=== PATIENT | female | born 1940 | race Asian ===

== ENCOUNTER 2021-01-12 06:16 | Inpatient (IN) | payer MEDICARE ==
[~2021-01-12] VITALS: Ht 162.6 cm; Wt 72.0 kg
[~2021-01-12 06:16] MED LIST: ASPI-611 PO; DILT30TA12 PO; LEVO125T PO; LOVA20TA2 PO; OMEP20CA15 PO; WARF5TAB2 PO
[2021-01-12 07:03] LABS: BASOPHILS # (AUTO) 0.1 X10'3 (0-0.2); BASOPHILS % (AUTO) 1.2 % (0-1); EOSINOPHILS # (AUTO) 0.2 X10'3 (0-0.9); HEMATOCRIT 41.3 % (35.0-45.0); HEMOGLOBIN 13.5 g/dl (12.0-16.0); LYMPHOCYTES # (AUTO) 1.4 X10'3 (1.1-4.8); LYMPHOCYTES % (AUTO) 26.2 % (21-51); MEAN CORPUSCULAR HEMOGLOBIN 29.7 PG (27.0-31.0); MEAN CORPUSCULAR HGB CONC 32.7 g/dL (33.0-36.5); MEAN CORPUSCULAR VOLUME 90.7 FL (78-98); MEAN PLATELET VOLUME 6.7 FL (7.4-10.4); MONOCYTES # (AUTO) 0.3 X10'3 (0-0.9); MONOCYTES % (AUTO) 5.8 % (2-12); NEUTROPHILS # (AUTO) 3.4 X10'3 (1.8-7.7); NEUTROPHILS % (AUTO) 63.8 % (42-75); PLATELET COUNT 329 X10'3 (140-440); RED BLOOD COUNT 4.56 X10'6 (4.20-5.60); RED CELL DISTRIBUTION WIDTH 15.8 % (11.5-14.5); WHITE BLOOD COUNT 5.3 X10'3 (4.5-11.0)
[2021-01-12 07:20] LABS: ALANINE AMINOTRANSFERASE 21 U/L (12-78); ALBUMIN 3.2 G/DL (3.4-5.0); ALBUMIN/GLOBULIN RATIO 0.9 (1.1-1.5); ALKALINE PHOSPHATASE 65 IU/L (46-116); ANION GAP 8 (8-16); ASPARTATE AMINO TRANSFERASE 15 U/L (10-37); BILIRUBIN,TOTAL 0.6 MG/DL (0.1-1.0); BLOOD UREA NITROGEN 12 MG/DL (7-18); BUN/CREATININE RATIO 15.8 (6.6-38.0); CALCIUM 8.3 MG/DL (8.5-10.1); CHLORIDE 109 MMOL/L (99-107); CREATININE 0.76 MG/DL (0.40-0.90); GLUCOSE 98 MG/DL (70-104); POTASSIUM 3.7 MMOL/L (3.5-5.1); SODIUM 142 MMOL/L (135-145); TOTAL CARBON DIOXIDE 24.9 MMOL/L (24-32); TOTAL PROTEIN 6.9 G/DL (6.4-8.2); eGFR 73 ML/MIN
[2021-01-12] MEDS ORDERED: normal saline 1000ML IV soln IVB ONE (07:40)
[2021-01-12] MEDS ORDERED: diltiazem 5mg/ml 5ml inj. IV ONE (07:40)
[2021-01-12] MEDS ORDERED: mag hydrox/Alum hydrox/simeth 30ml oral suspension PO PRN (07:55)
[2021-01-12] MEDS ORDERED: magnesium hydroxide 30ml (MOM) UD suspension PO PRN (07:55)
[2021-01-12] MEDS ORDERED: PERFLUTREN PROTEIN-A MICROSPHR (Optison) 0.22 MG/ML 3ML VIAL IV ONE (07:55)
[2021-01-12] MEDS ORDERED: magnesium 4gm in 100ml NS 100 ML IV PRN (07:55)
[2021-01-12] MEDS ORDERED: HYDROcodone/acetaminophen 5mg/325mg tablet PO PRN (07:55)
[2021-01-12] MEDS ORDERED: potassium Cl 20 mEq SR tablet PO PRN ×2 (07:55)
[2021-01-12] MEDS ORDERED: acetaminophen 325mg tablet PO PRN (07:55)
[2021-01-12] MEDS ORDERED: potassium Cl 40MEQ/1/2NS 520ml 520 ML IV PRN ×2 (07:55)
[2021-01-12] MEDS ORDERED: ondansetron/PF 4mg/2ml inj IV PRN (07:55)
[2021-01-12] MEDS ORDERED: magnesium 2GM in 50ml NS 50 ML IV PRN (07:55)
[2021-01-12] MEDS ORDERED: HYDROcodone/acetaminophen 10/325mg tab PO PRN (07:55)
[2021-01-12] MEDS ORDERED: heparin, porcine 5000 units/ml vial SQ SCH (08:00)
[2021-01-12] MEDS: K and/or MAG REPLACEMENT MC SCH ×2 (08:00→20:00)
[2021-01-12] MEDS ORDERED: metoprolol tartrate 25mg tablet PO ONE (09:20)
[2021-01-12] MEDS ORDERED: nitroGLYCERIN 0.4mg SUBLingual tab SL PRN (09:25)
[2021-01-12] MEDS ORDERED: regadenoson 0.4mg/5ml syringe IV PRN (09:25)
[2021-01-12] MEDS ORDERED: metoprolol tartrate 1mg/ml inj IV PRN (09:25)
[2021-01-12] MEDS ORDERED: aminophylline 250mg/10ml inj. IV PRN (09:25)
[2021-01-12 11:00] VITALS: BP 121/67
[2021-01-12] MEDS ORDERED: LEVO50TA8 PO (11:06)
--- NOTE | 2021-01-12 12:51 | NUR ---
fax dietary for late tray
[2021-01-12 15:00] VITALS: BP 93/57
--- NOTE | 2021-01-12 15:47 | NUR ---
receive call from jorge in nuc med that pt refused stress test and md longoria aware and gave ok to cancel
[2021-01-12] MEDS ORDERED: digoxin 250mcg/ml 2ml ampule IV STA (16:11)
--- NOTE | 2021-01-12 16:13 | NUR ---
return call from md longoria regarding hr 120-130 and sbp 97-87 afte rmetoprolol. to write ordes for dig.
[2021-01-12] MEDS: metoprolol tartrate 25mg tablet PO SCH (19:21)
[2021-01-12 20:00] VITALS: BP 114/62
[2021-01-12] MEDS ORDERED: warfarin 4mg tablet PO ONE (21:00)
[2021-01-12] MEDS ORDERED: digoxin 250mcg/ml 2ml ampule IV ONE (23:00)
--- NOTE | 2021-01-12 23:33 | NUR ---
Dr. Tavares notified of upward trending trops, now 0.07. No new orders, will continue to monitor. Pt reports no CP. HR 110's.
[2021-01-13] VITALS: BP 117/63
[2021-01-13 02:00] VITALS: BP 104/56
[2021-01-13] MEDS ORDERED: digoxin 250mcg/ml 2ml ampule IV ONE (05:00)
[2021-01-13 06:00] VITALS: BP 119/57
--- NOTE | 2021-01-13 06:00 | NUR ---
Patient in room PCU 3024. I have received report from Sammi PIEDRA and had the opportunity to ask questions and assume patient care.
[2021-01-13 07:20] LABS: BASOPHILS # (AUTO) 0.1 X10'3 (0-0.2); BASOPHILS % (AUTO) 0.9 % (0-1); EOSINOPHILS # (AUTO) 0.2 X10'3 (0-0.9); EOSINOPHILS % (AUTO) 3.5 % (0-6); HEMATOCRIT 39.2 % (35.0-45.0); HEMOGLOBIN 12.9 g/dl (12.0-16.0); LYMPHOCYTES # (AUTO) 2.1 X10'3 (1.1-4.8); LYMPHOCYTES % (AUTO) 32.9 % (21-51); MEAN CORPUSCULAR HEMOGLOBIN 30.2 PG (27.0-31.0); MEAN CORPUSCULAR VOLUME 91.7 FL (78-98); MEAN PLATELET VOLUME 6.8 FL (7.4-10.4); MONOCYTES # (AUTO) 0.3 X10'3 (0-0.9); MONOCYTES % (AUTO) 4.6 % (2-12); NEUTROPHILS # (AUTO) 3.8 X10'3 (1.8-7.7); NEUTROPHILS % (AUTO) 58.1 % (42-75); PLATELET COUNT 329 X10'3 (140-440); RED BLOOD COUNT 4.28 X10'6 (4.20-5.60); RED CELL DISTRIBUTION WIDTH 16.1 % (11.5-14.5); WHITE BLOOD COUNT 6.5 X10'3 (4.5-11.0)
[2021-01-13 07:31] LABS: ALANINE AMINOTRANSFERASE 16 U/L (12-78); ALBUMIN/GLOBULIN RATIO 0.9 (1.1-1.5); ALKALINE PHOSPHATASE 59 IU/L (46-116); ANION GAP 7 (8-16); ASPARTATE AMINO TRANSFERASE 17 U/L (10-37); BILIRUBIN,TOTAL 0.4 MG/DL (0.1-1.0); BLOOD UREA NITROGEN 16 MG/DL (7-18); BUN/CREATININE RATIO 20.5 (6.6-38.0); CALCIUM 8.3 MG/DL (8.5-10.1); CHLORIDE 110 MMOL/L (99-107); CHOL/HDL RATIO 6.9 (0.00-4.99); CHOLESTEROL 200 MG/DL (0-200); CREATININE 0.78 MG/DL (0.40-0.90); GLUCOSE 98 MG/DL (70-104); HDL CHOLESTEROL 29 MG/DL (35-60); LDL CHOLESTEROL 138 MG/DL (50-100); MAGNESIUM 2.3 MG/DL (1.5-2.4); POTASSIUM 4.1 MMOL/L (3.5-5.1); SODIUM 143 MMOL/L (135-145); TOTAL CARBON DIOXIDE 25.8 MMOL/L (24-32); TOTAL PROTEIN 6.4 G/DL (6.4-8.2); TRIGLYCERIDES 144 MG/DL (20-135); eGFR 71 ML/MIN
[2021-01-13] MEDS: metoprolol tartrate 25mg tablet PO SCH (07:58)
[2021-01-13] MEDS ORDERED: levoTHYROXINE 25mcg tablet PO SCH (08:00)
[2021-01-13] MEDS ORDERED: ATOR40TA71 PO (10:34)
[2021-01-13] MEDS ORDERED: DIGO-20 PO (10:34)
[2021-01-13 11:00] VITALS: BP 129/57
--- NOTE | 2021-01-13 12:20 | NUR ---
Reviewed all discharge information and education with patient. All questions answered; pt verbalizes understanding. IV and tele box removed. Scripts were e-faxed to pharmacy. Pt aware and agrees to follow up with cardiology. Pt got dressed. She stated her ride would be here soon. 1330 - Pt's ride arrived with two family members. This RN took pt downstairs via wheelchair to be driven home in private vehicle with family.
[2021-01-13] MEDS ORDERED: warfarin 4mg tablet PO ONE (21:00)
--- NOTE | 2021-01-15 14:22 | NUR ---
Case Management DC follow-up: Spoke w/pt via telephone. s/p: afib w/RVR Pt reports: discontinued taking atorvastatin. "I did not like the effect". Agrees to speak to shoeblack/Monse at follow up appt tomorrow 01/16/21. Denies: acute/continuous CP, new onset irregular rhythm, emergent SOB, resp distress, orthopnea, dyspnea, N/V, hematemesis, weakness, vertigo, syncopal episodes, orthostatic hypotension (educated pt on s/s & protocol), BURCIAGA, blurry vision TIA/Stroke/FAST, dysphagia, bladder pain, dysuria, polyuria, hematuria, retention, abd tenderness/pain/distension, hematochezia, melena, unexplained bleeding/bruising, fever, chills. Verbalizes understanding of current/new Rx, and why prescribed. Continues/resumes Rx as ordered (w/exception of Atorvastatin). Denies ase r/t polypharmacy/contraindications/allergies. Verbalizes compliance w/aftercare. Verbalizes understanding of s/s that warrant 9-11/ER visit for further evaluation. Pt acknowledges need to schedule/confirm/keep all follow-up appts w/PCP Jen, and will call to schedule. Bmet/Monse 01/16/21. Needs met, questions/concerns addressed at DC. No further questions/concerns verbalized r/t recent hospital stay and/or DC status at this time.
== END 2021-01-13 14:50 | disposition home or self-care (01) | DRG 282 ==
LOC: ER 06:17 → ED HOLD 07:51 → PCU 3S 09:50
PROVIDERS: ADMIT Family Medicine; ATTEND Family Medicine
DX: I48.91 Unspecified atrial fibrillation (principal); I21.A1 Myocardial infarction type 2; E03.9 Hypothyroidism, unspecified; E78.5 Hyperlipidemia, unspecified; K21.9 Gastro-esophageal reflux disease without esophagitis; R00.0 Tachycardia, unspecified; I08.1 Rheumatic disorders of both mitral and tricuspid valves; R00.1 Bradycardia, unspecified; J44.9 Chronic obstructive pulmonary disease, unspecified; Z79.01 Long term (current) use of anticoagulants; Z82.49 Family history of ischemic heart disease and other diseases of the circulatory system; Z83.3 Family history of diabetes mellitus; Z87.891 Personal history of nicotine dependence; Z79.899 Other long term (current) drug therapy; Z79.82 Long term (current) use of aspirin; Z91.19 Patient's noncompliance with other medical treatment and regimen
CPT/HCPCS: 36415; 71045; 80053; 80061; 80162; 83735; 83880; 84484; 85025; 85610; 87081; 93005; 93306; 97116; 97161; 97530; 99285; G0378; J1160; J1644; J3490; J7030

== ENCOUNTER 2021-08-31 06:31 | Inpatient (IN) | payer MEDICARE ==
[~2021-08-31] VITALS: Ht 162.6 cm; Wt 69.0 kg
[~2021-08-31 06:31] MED LIST changes: -ASPI-611 PO; +ATOR40TA71 PO; +DIGO-20 PO; -DILT30TA12 PO; -LEVO125T PO; +LEVO50TA8 PO; -LOVA20TA2 PO; -OMEP20CA15 PO
[2021-08-31] MEDS ORDERED: diltiazem 5mg/ml 5ml inj. IV ONE (07:10)
[2021-08-31 07:17] LABS: BASOPHILS # (AUTO) 0.1 X10'3 (0-0.2); BASOPHILS % (AUTO) 1.1 % (0-1); EOSINOPHILS # (AUTO) 0.2 X10'3 (0-0.9); EOSINOPHILS % (AUTO) 4.1 % (0-6); HEMOGLOBIN 14.7 g/dl (12.0-16.0); LYMPHOCYTES # (AUTO) 1.6 X10'3 (1.1-4.8); LYMPHOCYTES % (AUTO) 32.7 % (21-51); MEAN CORPUSCULAR HEMOGLOBIN 29.6 PG (27.0-31.0); MEAN CORPUSCULAR HGB CONC 32.7 g/dL (33.0-36.5); MEAN CORPUSCULAR VOLUME 90.6 FL (78-98); MEAN PLATELET VOLUME 6.6 FL (7.4-10.4); MONOCYTES # (AUTO) 0.3 X10'3 (0-0.9); MONOCYTES % (AUTO) 5.2 % (2-12); NEUTROPHILS # (AUTO) 2.8 X10'3 (1.8-7.7); NEUTROPHILS % (AUTO) 56.9 % (42-75); PLATELET COUNT 308 X10'3 (140-440); RED BLOOD COUNT 4.97 X10'6 (4.20-5.60); RED CELL DISTRIBUTION WIDTH 16.1 % (11.5-14.5)
[2021-08-31 07:32] LABS: ALANINE AMINOTRANSFERASE 24 U/L (12-78); ALBUMIN 3.3 G/DL (3.4-5.0); ALBUMIN/GLOBULIN RATIO 0.9 (1.1-1.5); ALKALINE PHOSPHATASE 70 IU/L (46-116); ANION GAP 11 (8-16); ASPARTATE AMINO TRANSFERASE 19 U/L (10-37); BILIRUBIN,TOTAL 0.5 MG/DL (0.1-1.0); BLOOD UREA NITROGEN 15 MG/DL (7-18); BUN/CREATININE RATIO 17.9 (6.6-38.0); CALCIUM 8.3 MG/DL (8.5-10.1); CHLORIDE 110 MMOL/L (99-107); CREATININE 0.84 MG/DL (0.40-0.90); GLUCOSE 84 MG/DL (70-104); POTASSIUM 3.6 MMOL/L (3.5-5.1); SODIUM 143 MMOL/L (135-145); TOTAL CARBON DIOXIDE 22.5 MMOL/L (24-32); eGFR 65 ML/MIN
[2021-08-31] MEDS ORDERED: nitroGLYCERIN 0.2mg/hour patch TD ONE (08:20)
[2021-08-31] MEDS ORDERED: digoxin 250mcg (0.25mg) tablet PO ONE ×2 (09:45→19:35)
[2021-08-31] MEDS ORDERED: PERFLUTREN PROTEIN-A MICROSPHR (Optison) 0.22 MG/ML 3ML VIAL IV ONE (09:45)
[2021-08-31] MEDS ORDERED: potassium CL 10mEq/100ml bag 100 ML IV PRN (09:45)
[2021-08-31] MEDS ORDERED: HYDROcodone/acetaminophen 10/325mg tab PO PRN (09:45)
[2021-08-31] MEDS ORDERED: acetaminophen 325mg tablet PO PRN (09:45)
[2021-08-31] MEDS ORDERED: magnesium Cl slow-release 64mg tablet PO PRN (09:45)
[2021-08-31] MEDS ORDERED: HYDROcodone/acetaminophen 5mg/325mg tablet PO PRN (09:45)
[2021-08-31] MEDS ORDERED: ondansetron/PF 4mg/2ml inj IV PRN (09:45)
[2021-08-31] MEDS ORDERED: magnesium 2GM in 50ml NS 50 ML IV PRN (09:45)
[2021-08-31] MEDS ORDERED: potassium Cl 20 mEq SR tablet PO PRN ×2 (09:45)
[2021-08-31] MEDS ORDERED: magnesium 4gm in 100ml NS 100 ML IV PRN (09:45)
[2021-08-31] MEDS: pantoprazole 40mg Tablet.DR PO SCH (10:00)
[2021-08-31] MEDS ORDERED: PERFLUTREN PROTEIN-A MICROSPHR (Optison) 0.22 MG/ML 3ML VIAL IV PRN (13:55)
[2021-08-31] MEDS ORDERED: LAN0.125T PO (15:33)
[2021-08-31] MEDS ORDERED: digoxin 250mcg/ml 2ml ampule IV ONE (19:00)
[2021-08-31] MEDS ORDERED: heparin 10,000 units/1 ML INJ IV PRN (19:35)
[2021-08-31] MEDS ORDERED: heparin 10,000 units/1 ML INJ IV ONE (19:35)
[2021-08-31] MEDS: K and/or MAG REPLACEMENT MC SCH (20:00)
[2021-08-31] MEDS: heparin 25,000 UNIT/250ml bag 250 ML IV SCH (20:28)
[2021-08-31 20:36] LABS: BASOPHILS # (AUTO) 0.1 X10'3 (0-0.2); BASOPHILS % (AUTO) 0.9 % (0-1); EOSINOPHILS # (AUTO) 0.2 X10'3 (0-0.9); EOSINOPHILS % (AUTO) 2.5 % (0-6); HEMATOCRIT 44.3 % (35.0-45.0); HEMOGLOBIN 14.5 g/dl (12.0-16.0); MEAN CORPUSCULAR HEMOGLOBIN 29.6 PG (27.0-31.0); MEAN CORPUSCULAR HGB CONC 32.7 g/dL (33.0-36.5); MEAN CORPUSCULAR VOLUME 90.5 FL (78-98); MEAN PLATELET VOLUME 6.8 FL (7.4-10.4); MONOCYTES # (AUTO) 0.3 X10'3 (0-0.9); MONOCYTES % (AUTO) 4.9 % (2-12); NEUTROPHILS # (AUTO) 4.5 X10'3 (1.8-7.7); NEUTROPHILS % (AUTO) 63.7 % (42-75); PLATELET COUNT 384 X10'3 (140-440); RED BLOOD COUNT 4.89 X10'6 (4.20-5.60); RED CELL DISTRIBUTION WIDTH 16.5 % (11.5-14.5)
[2021-08-31 20:49] LABS: APTT 37 SECONDS (22-32)
[2021-08-31] MEDS ORDERED: warfarin 5mg tablet PO ONE (21:00)
[2021-08-31] MEDS: docusate sod 100mg capsule PO SCH (21:43)
[2021-09-01 02:00] VITALS: BP 117/76
--- NOTE | 2021-09-01 05:30 | NUR ---
Patient requested for tylenol for pain rcall placed to DR Whiteside awaiting injection moulding machine operator abck
[2021-09-01 06:00] VITALS: BP 106/65
[2021-09-01 07:02] LABS: BASOPHILS # (AUTO) 0.1 X10'3 (0-0.2); BASOPHILS % (AUTO) 0.9 % (0-1); EOSINOPHILS # (AUTO) 0.3 X10'3 (0-0.9); EOSINOPHILS % (AUTO) 3.7 % (0-6); HEMATOCRIT 45.8 % (35.0-45.0); HEMOGLOBIN 14.9 g/dl (12.0-16.0); LYMPHOCYTES # (AUTO) 2.4 X10'3 (1.1-4.8); LYMPHOCYTES % (AUTO) 32.5 % (21-51); MEAN CORPUSCULAR HEMOGLOBIN 29.7 PG (27.0-31.0); MEAN CORPUSCULAR HGB CONC 32.6 g/dL (33.0-36.5); MEAN CORPUSCULAR VOLUME 91.1 FL (78-98); MONOCYTES # (AUTO) 0.4 X10'3 (0-0.9); MONOCYTES % (AUTO) 5.1 % (2-12); NEUTROPHILS # (AUTO) 4.3 X10'3 (1.8-7.7); NEUTROPHILS % (AUTO) 57.8 % (42-75); PLATELET COUNT 347 X10'3 (140-440); RED BLOOD COUNT 5.03 X10'6 (4.20-5.60); RED CELL DISTRIBUTION WIDTH 16.3 % (11.5-14.5); WHITE BLOOD COUNT 7.5 X10'3 (4.5-11.0)
[2021-09-01 07:28] LABS: ALANINE AMINOTRANSFERASE 31 U/L (12-78); ALBUMIN 3.2 G/DL (3.4-5.0); ALKALINE PHOSPHATASE 68 IU/L (46-116); ANION GAP 11 (8-16); ASPARTATE AMINO TRANSFERASE 31 U/L (10-37); BILIRUBIN,TOTAL 0.4 MG/DL (0.1-1.0); BLOOD UREA NITROGEN 17 MG/DL (7-18); BUN/CREATININE RATIO 24.3 (6.6-38.0); CALCIUM 8.3 MG/DL (8.5-10.1); CHLORIDE 110 MMOL/L (99-107); CHOL/HDL RATIO 5.1 (0.00-4.99); CHOLESTEROL 190 MG/DL (0-200); GLUCOSE 91 MG/DL (70-104); HDL CHOLESTEROL 37 MG/DL (35-60); LDL CHOLESTEROL 125 MG/DL (50-100); MAGNESIUM 2.4 MG/DL (1.5-2.4); SODIUM 142 MMOL/L (135-145); TOTAL CARBON DIOXIDE 21.1 MMOL/L (24-32); TOTAL PROTEIN 6.4 G/DL (6.4-8.2); TRIGLYCERIDES 112 MG/DL (20-135); eGFR 80 ML/MIN
[2021-09-01 07:29] LABS: POTASSIUM 4.4 MMOL/L (3.5-5.1)
[2021-09-01] MEDS: levoTHYROXINE 25mcg tablet PO SCH (07:59)
[2021-09-01] MEDS: pantoprazole 40mg Tablet.DR PO SCH (08:00)
[2021-09-01] MEDS: docusate sod 100mg capsule PO SCH ×2 (08:00→19:57)
[2021-09-01] MEDS: digoxin 125mcg (0.125mg) tablet PO SCH (08:00)
[2021-09-01] MEDS: K and/or MAG REPLACEMENT MC SCH ×2 (08:05→20:00)
--- NOTE | 2021-09-01 08:30 | NUR ---
[address]le- Heart rate dropped to 20's(non sustained) now 43, BP 83/42... Patient states she was feeling dizzy. I held dig this am. Notified Dr Santos via text at [phone]. Patient placed in trendelenburg BP up to 95/40,HR 52, Patient stated Starting to feel alot better.Will continue to monitor, Per Dr. Santos okay to hold am digoxin.
[2021-09-01 11:00] VITALS: BP 95/43
[2021-09-01 15:00] VITALS: BP 99/47
[2021-09-01 18:00] VITALS: BP 108/50
--- NOTE | 2021-09-01 18:30 | NUR ---
Pt in bed eating dinner, denied any discomfort. HOB elevated for comfort, call light and bedside commode placed within reach. heparin drips infusing at 10ml/hr. No signs of bleeding noted nor reported by pt.
--- NOTE | 2021-09-01 18:55 | NUR ---
late entry 09/01/21 PTT done result received [id number] heparin drip titrate as per protocol infusing at 10ml/hr next Ptt lab schedule . patient tolerated well report givent to gongoing nurse.
--- NOTE | 2021-09-01 20:15 | NUR ---
call lab for blood draw.
[2021-09-01 22:00] VITALS: BP 116/58
--- NOTE | 2021-09-01 22:00 | NUR ---
Heparin placed on hold.
--- NOTE | 2021-09-01 23:18 | NUR ---
Heparin drips restarted as per protocol.
[2021-09-02 02:00] VITALS: BP 128/54
[2021-09-02] MEDS: heparin 25,000 UNIT/250ml bag 250 ML IV SCH (03:48)
[2021-09-02 06:00] VITALS: BP 135/65
--- NOTE | 2021-09-02 06:56 | NUR ---
Heparin drips restarted post blood draw. IV infusing at 8 ml/hr
[2021-09-02 07:12] LABS: BASOPHILS # (AUTO) 0.1 X10'3 (0-0.2); BASOPHILS % (AUTO) 0.8 % (0-1); EOSINOPHILS # (AUTO) 0.4 X10'3 (0-0.9); EOSINOPHILS % (AUTO) 6.1 % (0-6); HEMATOCRIT 43.1 % (35.0-45.0); HEMOGLOBIN 14.1 g/dl (12.0-16.0); LYMPHOCYTES # (AUTO) 2.4 X10'3 (1.1-4.8); LYMPHOCYTES % (AUTO) 34.6 % (21-51); MEAN CORPUSCULAR HEMOGLOBIN 29.6 PG (27.0-31.0); MEAN CORPUSCULAR HGB CONC 32.7 g/dL (33.0-36.5); MEAN CORPUSCULAR VOLUME 90.5 FL (78-98); MEAN PLATELET VOLUME 7.1 FL (7.4-10.4); MONOCYTES # (AUTO) 0.4 X10'3 (0-0.9); MONOCYTES % (AUTO) 5.7 % (2-12); NEUTROPHILS # (AUTO) 3.6 X10'3 (1.8-7.7); NEUTROPHILS % (AUTO) 52.8 % (42-75); PLATELET COUNT 341 X10'3 (140-440); RED BLOOD COUNT 4.77 X10'6 (4.20-5.60); RED CELL DISTRIBUTION WIDTH 16.2 % (11.5-14.5); WHITE BLOOD COUNT 6.8 X10'3 (4.5-11.0)
[2021-09-02 07:54] LABS: ALANINE AMINOTRANSFERASE 65 U/L (12-78); ALBUMIN 3.1 G/DL (3.4-5.0); ALKALINE PHOSPHATASE 65 IU/L (46-116); ANION GAP 8 (8-16); ASPARTATE AMINO TRANSFERASE 44 U/L (10-37); BILIRUBIN,TOTAL 0.5 MG/DL (0.1-1.0); BLOOD UREA NITROGEN 14 MG/DL (7-18); BUN/CREATININE RATIO 17.5 (6.6-38.0); CALCIUM 8.5 MG/DL (8.5-10.1); CHLORIDE 109 MMOL/L (99-107); GLUCOSE 91 MG/DL (70-104); MAGNESIUM 2.2 MG/DL (1.5-2.4); POTASSIUM 4.3 MMOL/L (3.5-5.1); SODIUM 142 MMOL/L (135-145); TOTAL CARBON DIOXIDE 25.4 MMOL/L (24-32); TOTAL PROTEIN 6.2 G/DL (6.4-8.2); eGFR 69 ML/MIN
[2021-09-02] MEDS: levoTHYROXINE 25mcg tablet PO SCH (07:57)
[2021-09-02] MEDS: pantoprazole 40mg Tablet.DR PO SCH (07:57)
[2021-09-02] MEDS: docusate sod 100mg capsule PO SCH (07:57)
[2021-09-02] MEDS: digoxin 125mcg (0.125mg) tablet PO SCH (07:58)
[2021-09-02] MEDS: K and/or MAG REPLACEMENT MC SCH (08:00)
--- NOTE | 2021-09-02 16:02 | NUR ---
Patient discharge. Discharge to personal vehicle accommodated by staff via w/c. Discharge Teaching/Instruction given.Teaching regarding compliance with medication and scheduled MD appointments. Voices no questions or concerns, Telemetry discontinued, IV removed.
== END 2021-09-02 15:38 | disposition home or self-care (01) | DRG 281 ==
LOC: ER 06:31 → ED HOLD 09:47 → EDBEDREQ 11:27 → CANBEDREQ 12:13 → MED 3N 09-01 01:30
PROVIDERS: ADMIT Family Medicine; ATTEND Family Medicine
DX: I48.91 Unspecified atrial fibrillation (principal); I21.A1 Myocardial infarction type 2; I20.0 Unstable angina; K21.9 Gastro-esophageal reflux disease without esophagitis; E03.9 Hypothyroidism, unspecified; Z82.49 Family history of ischemic heart disease and other diseases of the circulatory system; Z83.3 Family history of diabetes mellitus; Z87.891 Personal history of nicotine dependence; Z79.899 Other long term (current) drug therapy; Z79.01 Long term (current) use of anticoagulants
CPT/HCPCS: 36415; 71045; 80053; 80061; 80162; 83735; 83880; 84484; 85025; 85610; 85730; 87081; 93005; 93306; 99285; G0378; J1160; J1644; J3490

== ENCOUNTER 2022-12-07 12:43 | Emergency (ER) | payer MEDICARE ==
[~2022-12-07] VITALS: Ht 165.1 cm; Wt 153.0 kg
[~2022-12-07 12:43] MED LIST changes: -ATOR40TA71 PO; -DIGO-20 PO; +LAN0.125T PO
[2022-12-07 13:35] VITALS: BP 140/68
[2022-12-07] MEDS ORDERED: amox tr/potassium clavulanate 875/125mg TAB PO ONE (14:50)
[2022-12-07] MEDS ORDERED: LIDOcaine 1% W/epiNEPHrine 1:100,000 20ml vial SQ ONE (14:50)
[2022-12-07] MEDS ORDERED: AMOX-117 PO (14:58)
== END 2022-12-07 16:31 | disposition home or self-care (01) ==
LOC: ER 12:43
DX: K21.9 Gastro-esophageal reflux disease without esophagitis (principal); Z79.899 Other long term (current) drug therapy
CPT/HCPCS: 87070; 87075; 99283

== ENCOUNTER 2024-02-27 10:27 | Inpatient (IN) | payer MEDICARE ==
[~2024-02-27] VITALS: Ht 167.6 cm; Wt 70.0 kg
[2024-02-27 10:34] VITALS: TEMP 98.1
[2024-02-27 10:56] LABS: BASOPHILS # (AUTO) 0.1 X10'3 (0-0.2); BASOPHILS % (AUTO) 1.2 % (0-1); EOSINOPHILS # (AUTO) 0.3 X10'3 (0-0.9); HEMATOCRIT 52.8 % (35.0-45.0); HEMOGLOBIN 17.2 g/dl (12.0-16.0); LYMPHOCYTES # (AUTO) 1.8 X10'3 (1.1-4.8); MEAN CORPUSCULAR HEMOGLOBIN 29.7 PG (27.0-31.0); MEAN CORPUSCULAR HGB CONC 32.5 g/dL (33.0-36.5); MEAN CORPUSCULAR VOLUME 91.5 FL (78-98); MEAN PLATELET VOLUME 6.8 FL (7.4-10.4); MONOCYTES # (AUTO) 0.3 X10'3 (0-0.9); MONOCYTES % (AUTO) 5.5 % (2-12); NEUTROPHILS # (AUTO) 3.4 X10'3 (1.8-7.7); NEUTROPHILS % (AUTO) 57.3 % (42-75); PLATELET COUNT 410 X10'3 (140-440); RED BLOOD COUNT 5.77 X10'6 (4.20-5.60); RED CELL DISTRIBUTION WIDTH 17.5 % (11.5-14.5); WHITE BLOOD COUNT 5.9 X10'3 (4.5-11.0)
[2024-02-27 11:08] LABS: ALANINE AMINOTRANSFERASE 17 U/L (12-78); ALBUMIN 3.5 G/DL (3.4-5.0); ALBUMIN/GLOBULIN RATIO 0.8 (1.1-1.5); ALKALINE PHOSPHATASE 96 IU/L (46-116); ANION GAP 7 (8-16); ASPARTATE AMINO TRANSFERASE 18 U/L (10-37); BILIRUBIN,TOTAL 0.8 MG/DL (0.1-1.0); BLOOD UREA NITROGEN 9 MG/DL (7-18); BUN/CREATININE RATIO 10.7 (10.0-20.0); CHLORIDE 107 MMOL/L (99-107); CREATININE 0.84 MG/DL (0.40-0.90); GLUCOSE 94 MG/DL (70-104); POTASSIUM 3.9 MMOL/L (3.5-5.1); SODIUM 141 MMOL/L (135-145); TOTAL CARBON DIOXIDE 26.6 MMOL/L (24-32); TOTAL PROTEIN 7.7 G/DL (6.4-8.2); eCRCL 46 ML/MIN; eGFR 64 ML/MIN
[2024-02-27 11:15] LABS: PRO BRAIN NATRIURETIC PEPTIDE 698 PG/ML (0-450)
[2024-02-27] MEDS: etomidate 2mg/ml inj. IV ONE (11:20)
[2024-02-27] MEDS: normal saline 250ml IV soln 250 ML IV ONE (11:55)
[2024-02-27 12:11] VITALS: PULSE 53; RESP 14; O2SAT 98
[2024-02-27] MEDS ORDERED: LORA-268 PO (12:52)
[2024-02-27] MEDS ORDERED: magnesium sulf-water 2g/50mL 50 ML IV PRN (15:35)
[2024-02-27] MEDS: PERFLUTREN PROTEIN-A MICROSPHR (Optison) 0.22 MG/ML 3ML VIAL IV ONE (15:35)
[2024-02-27] MEDS ORDERED: acetaminophen 325mg tablet PO PRN (15:35)
[2024-02-27] MEDS ORDERED: potassium Cl 20 mEq SR tablet PO PRN ×2 (15:35)
[2024-02-27] MEDS ORDERED: mag hydrox/Alum hydrox/simeth 30ml oral suspension PO PRN (15:35)
[2024-02-27] MEDS ORDERED: magnesium sulf-water 4G/100mL 100 ML IV PRN (15:35)
[2024-02-27] MEDS ORDERED: potassium Cl 40MEQ/1/2NS 520ml 520 ML IV PRN (15:35)
[2024-02-27] MEDS ORDERED: ondansetron/PF 4mg/2ml inj IV PRN (15:35)
[2024-02-27] MEDS ORDERED: LORazepam 0.5 MG tablet PO PRN ×2 (16:20→16:30)
[2024-02-27] MEDS ORDERED: LOSA100T58 PO (16:31)
[2024-02-27 16:42] LABS: PROTHROMBIN TIME 30.2 SECONDS (9.0-12.0)
[2024-02-27] MEDS ORDERED: K and/or MAG REPLACEMENT MC SCH (20:00)
[2024-02-27] MEDS ORDERED: docusate sod 100mg capsule PO SCH (20:00)
[2024-02-27] MEDS: warfarin 3mg tablet PO ONE (21:00)
[2024-02-27 21:30] VITALS: BP 162/80; PULSE 63; RESP 16; O2SAT 97
[2024-02-28] MEDS ORDERED: levoTHYROXINE 25mcg tablet PO SCH (08:00)
[2024-02-28] MEDS ORDERED: losartan 50mg tablet PO SCH (08:00)
[2024-02-28] MEDS ORDERED: digoxin 125mcg (0.125mg) tablet PO SCH (08:00)
== END 2024-02-27 21:30 | disposition left against medical advice (07) | DRG 282 ==
LOC: ER 10:27 → ED HOLD 16:22
PROVIDERS: ADMIT Family Medicine; ATTEND Family Medicine
DX: I48.91 Unspecified atrial fibrillation (principal); I21.A1 Myocardial infarction type 2; Z53.21 Procedure and treatment not carried out due to patient leaving prior to being seen by health care provider; K21.9 Gastro-esophageal reflux disease without esophagitis; I95.9 Hypotension, unspecified; I10 Essential (primary) hypertension; E03.9 Hypothyroidism, unspecified; Z79.899 Other long term (current) drug therapy; Z91.148 Patient's other noncompliance with medication regimen for other reason
CPT/HCPCS: 36415; 80053; 83880; 84484; 85025; 85610; 93005; 94760; 99285; A4620; G0378; J7030; J7050

== ENCOUNTER 2024-10-05 06:25 | Inpatient (IN) | payer MEDICARE ==
[2024-10-05] VITALS (7 sets, daily range): BP systolic 102–114; BP diastolic 55–72; PULSE 56–100; RESP 15–19; TEMP 97.1; O2SAT 94–97
[~2024-10-05] VITALS: Ht 162.6 cm; Wt 68.0 kg
[~2024-10-05 06:25] MED LIST changes: +LORA-268 PO; +LOSA100T58 PO
[2024-10-05] MEDS: normal saline 1000ml 1,000 ML IV ONE (06:41)
[2024-10-05 06:48] LABS: BASOPHILS % (AUTO) 0.6 % (0-1); EOSINOPHILS # (AUTO) 0.1 X10'3 (0-0.9); EOSINOPHILS % (AUTO) 2.7 % (0-6); HEMATOCRIT 44.6 % (35.0-45.0); HEMOGLOBIN 14.7 g/dl (12.0-16.0); LYMPHOCYTES # (AUTO) 1.4 X10'3 (1.1-4.8); LYMPHOCYTES % (AUTO) 26.3 % (21-51); MEAN CORPUSCULAR HEMOGLOBIN 30.1 PG (27.0-31.0); MEAN CORPUSCULAR HGB CONC 32.9 g/dL (33.0-36.5); MEAN CORPUSCULAR VOLUME 91.6 FL (78-98); MEAN PLATELET VOLUME 6.7 FL (7.4-10.4); MONOCYTES # (AUTO) 0.3 X10'3 (0-0.9); MONOCYTES % (AUTO) 6.4 % (2-12); NEUTROPHILS # (AUTO) 3.5 X10'3 (1.8-7.7); PLATELET COUNT 380 X10'3 (140-440); RED BLOOD COUNT 4.87 X10'6 (4.20-5.60); RED CELL DISTRIBUTION WIDTH 15.6 % (11.5-14.5); WHITE BLOOD COUNT 5.5 X10'3 (4.5-11.0)
[2024-10-05 07:01] LABS: APTT 44 SECONDS (22-32); INR 2.9 INR; PROTHROMBIN TIME 28.4 SECONDS (9.0-12.0)
[2024-10-05] MEDS: diltiazem 5mg/ml 5ml inj. IV ONE (07:04)
[2024-10-05 07:05] LABS: ALANINE AMINOTRANSFERASE 13 U/L (12-78); ALBUMIN 2.8 G/DL (3.4-5.0); ALBUMIN/GLOBULIN RATIO 0.7 (1.1-1.5); ALKALINE PHOSPHATASE 84 IU/L (46-116); ANION GAP 7 (8-16); ASPARTATE AMINO TRANSFERASE 12 U/L (10-37); BILIRUBIN,TOTAL 0.4 MG/DL (0.1-1.0); BLOOD UREA NITROGEN 9 MG/DL (7-18); CHLORIDE 112 MMOL/L (99-107); CREATININE 0.69 MG/DL (0.40-0.90); GLUCOSE 97 MG/DL (70-104); POTASSIUM 3.7 MMOL/L (3.5-5.1); SODIUM 142 MMOL/L (135-145); TOTAL CARBON DIOXIDE 23.4 MMOL/L (24-32); TOTAL PROTEIN 6.7 G/DL (6.4-8.2); eCRCL 51 ML/MIN; eGFR 81 ML/MIN
[2024-10-05 07:12] LABS: MAGNESIUM 2.1 MG/DL (1.5-2.4); PRO BRAIN NATRIURETIC PEPTIDE 697 PG/ML (0-450)
[2024-10-05] MEDS: diltiazem-NS 100mg/100ml 100 ML IV PRN (07:39)
[2024-10-05] MEDS ORDERED: magnesium sulf-water 2g/50mL 50 ML IV PRN ×2 (07:45→07:50)
[2024-10-05] MEDS ORDERED: HYDROcodone/acetaminophen 10/325mg tab PO PRN ×2 (07:45→07:50)
[2024-10-05] MEDS ORDERED: acetaminophen 325mg tablet PO PRN ×3 (07:45→07:50)
[2024-10-05] MEDS ORDERED: ondansetron/PF 4mg/2ml inj IV PRN (07:45)
[2024-10-05] MEDS ORDERED: mag hydrox/Alum hydrox/simeth 30ml oral suspension PO PRN (07:45)
[2024-10-05] MEDS ORDERED: potassium Cl 40MEQ/1/2NS 520ml 520 ML IV PRN ×2 (07:45→07:50)
[2024-10-05] MEDS ORDERED: HYDROcodone/acetaminophen 5mg/325mg tablet PO PRN ×2 (07:45→07:50)
[2024-10-05] MEDS ORDERED: potassium Cl 20 mEq SR tablet PO PRN ×4 (07:45→07:50)
[2024-10-05] MEDS ORDERED: magnesium hydroxide 30ml (MOM) UD suspension PO PRN (07:45)
[2024-10-05] MEDS ORDERED: magnesium sulf-water 4G/100mL 100 ML IV PRN ×2 (07:45→07:50)
[2024-10-05 07:49] LABS: THYROID STIMULATING HORMONE 2.12 ulU/ml (0.34-4.50)
[2024-10-05] MEDS: PERFLUTREN PROTEIN-A MICROSPHR (Optison) 0.22 MG/ML 3ML VIAL IV ONE (07:53)
[2024-10-05] MEDS: docusate sod 100mg capsule PO SCH (08:00)
[2024-10-05] MEDS: K and/or MAG REPLACEMENT MC SCH ×2 (08:00)
[2024-10-05] MEDS: levoTHYROXINE 25mcg tablet PO ONE (08:16)
[2024-10-05] MEDS ORDERED: nitroGLYCERIN 0.4mg SUBLingual tab SL PRN (10:20)
[2024-10-05] MEDS ORDERED: aspirin 325mg tablet, delayed-release (Ecotrin) PO ONE (10:20)
[2024-10-05] MEDS ORDERED: heparin 10,000 units/1 ML INJ IV PRN (10:35)
[2024-10-05] MEDS: aspirin 81mg, enteric-coated 1 TAB TABLET.DR PO ONE (10:44)
[2024-10-05] MEDS: atorvastatin 20mg tablet PO ONE (10:44)
[2024-10-05] MEDS: heparin 10,000 units/1 ML INJ IV ONE (10:56)
[2024-10-05] MEDS: heparin 25,000 UNIT/250ml bag 250 ML IV PRN (10:57)
[2024-10-05] MEDS: HEPARIN DRIP-CARDIAC**PHARMACIST-TO-DOSE IV ONE (10:59)
[2024-10-05] MEDS: MESSAGE TO NURSING IV ONE (11:00)
[2024-10-05 12:01] LABS: BILIRUBIN,URINE NEGATIVE (Neg); CLARITY,URINE CLEAR (Clear); COLOR,URINE YELLOW (Yellow); GLUCOSE, URINE NEGATIVE (Neg); KETONES,URINE NEGATIVE (Neg); LEUKOCYTE ESTERASE ,URINE NEGATIVE (Neg); NITRITES, URINE NEGATIVE (Neg); OCCULT BLOOD,URINE NEGATIVE (Neg); PROTEIN,URINE NEGATIVE (Neg); UROBILINOGEN,URINE 0.2 E.U/dL (0.2-1.0)
[2024-10-05 12:08] LABS: UA COLLECTION TYPE CLN CATCH MIDSTREAM
[2024-10-05 19:06] LABS: ALANINE AMINOTRANSFERASE 14 U/L (12-78); ALKALINE PHOSPHATASE 87 IU/L (46-116); ASPARTATE AMINO TRANSFERASE 24 U/L (10-37); BILIRUBIN,DIRECT 0.1 MG/DL (0-0.3); BILIRUBIN,TOTAL 0.6 MG/DL (0.1-1.0)
[2024-10-05 19:19] LABS: ALBUMIN 2.9 G/DL (3.4-5.0); ALBUMIN/GLOBULIN RATIO 0.7 (1.1-1.5)
[2024-10-05] MEDS ORDERED: warfarin 5mg tablet PO ONE (21:00)
[2024-10-05] MEDS: amiodarone 200mg tablet PO SCH (21:15)
[2024-10-06] VITALS (9 sets, daily range): BP systolic 106–130; BP diastolic 58–73; PULSE 51–73; RESP 15–21; TEMP 97.2–98.1; O2SAT 94–98
[2024-10-06] MEDS: Melatonin 3mg tablet PO SCH ×2 (03:00→22:11)
[2024-10-06 06:47] LABS: BASOPHILS % (AUTO) 0.7 % (0-1); EOSINOPHILS # (AUTO) 0.2 X10'3 (0-0.9); EOSINOPHILS % (AUTO) 2.9 % (0-6); HEMATOCRIT 44.6 % (35.0-45.0); HEMOGLOBIN 14.3 g/dl (12.0-16.0); LYMPHOCYTES # (AUTO) 1.8 X10'3 (1.1-4.8); MEAN CORPUSCULAR HEMOGLOBIN 29.6 PG (27.0-31.0); MEAN CORPUSCULAR HGB CONC 32.1 g/dL (33.0-36.5); MEAN CORPUSCULAR VOLUME 92.4 FL (78-98); MEAN PLATELET VOLUME 6.9 FL (7.4-10.4); MONOCYTES # (AUTO) 0.4 X10'3 (0-0.9); MONOCYTES % (AUTO) 5.9 % (2-12); NEUTROPHILS # (AUTO) 4.3 X10'3 (1.8-7.7); NEUTROPHILS % (AUTO) 63.5 % (42-75); PLATELET COUNT 381 X10'3 (140-440); RED BLOOD COUNT 4.82 X10'6 (4.20-5.60); RED CELL DISTRIBUTION WIDTH 16.1 % (11.5-14.5); WHITE BLOOD COUNT 6.8 X10'3 (4.5-11.0)
[2024-10-06 07:06] LABS: INR 2.4 INR; PROTHROMBIN TIME 23.4 SECONDS (9.0-12.0)
[2024-10-06 07:12] LABS: ALANINE AMINOTRANSFERASE 17 U/L (12-78); ALBUMIN 2.7 G/DL (3.4-5.0); ALBUMIN/GLOBULIN RATIO 0.7 (1.1-1.5); ALKALINE PHOSPHATASE 81 IU/L (46-116); ANION GAP 8 (8-16); ASPARTATE AMINO TRANSFERASE 24 U/L (10-37); BILIRUBIN,TOTAL 0.7 MG/DL (0.1-1.0); BLOOD UREA NITROGEN 15 MG/DL (7-18); BUN/CREATININE RATIO 23.1 (10.0-20.0); CALCIUM 8.3 MG/DL (8.5-10.1); CHLORIDE 110 MMOL/L (99-107); CREATININE 0.65 MG/DL (0.40-0.90); GLUCOSE 91 MG/DL (70-104); SODIUM 142 MMOL/L (135-145); TOTAL CARBON DIOXIDE 23.7 MMOL/L (24-32); TOTAL PROTEIN 6.5 G/DL (6.4-8.2); eCRCL 54 ML/MIN; eGFR 86 ML/MIN
[2024-10-06] MEDS: diltiazem CD 180mg cap (once-daily) PO SCH (08:00)
[2024-10-06] MEDS: aspirin 81mg, enteric-coated 1 TAB TABLET.DR PO SCH (08:21)
[2024-10-06] MEDS: levoTHYROXINE 25mcg tablet PO SCH (08:21)
[2024-10-06] MEDS: apixaban 5mg tablet PO SCH (08:22)
[2024-10-06] MEDS ORDERED: apixaban 5mg tablet PO SCH (20:00)
[2024-10-06] MEDS: atorvastatin 20mg tablet PO SCH (22:10)
[2024-10-07 02:00] VITALS: BP 146/50; PULSE 51; RESP 17; TEMP 97.2; O2SAT 96
[2024-10-07 06:02] LABS: INR 2.1 INR; PROTHROMBIN TIME 20.4 SECONDS (9.0-12.0)
[2024-10-07 06:08] LABS: ALANINE AMINOTRANSFERASE 24 U/L (12-78); ALBUMIN 2.8 G/DL (3.4-5.0); ALBUMIN/GLOBULIN RATIO 0.7 (1.1-1.5); ALKALINE PHOSPHATASE 89 IU/L (46-116); ANION GAP 5 (8-16); BILIRUBIN,TOTAL 0.8 MG/DL (0.1-1.0); BLOOD UREA NITROGEN 12 MG/DL (7-18); BUN/CREATININE RATIO 17.6 (10.0-20.0); CALCIUM 8.4 MG/DL (8.5-10.1); CHLORIDE 109 MMOL/L (99-107); CREATININE 0.68 MG/DL (0.40-0.90); GLUCOSE 89 MG/DL (70-104); SODIUM 139 MMOL/L (135-145); TOTAL CARBON DIOXIDE 25.2 MMOL/L (24-32); eCRCL 51 ML/MIN; eGFR 82 ML/MIN
[2024-10-07 06:09] LABS: ASPARTATE AMINO TRANSFERASE 35 U/L (10-37); POTASSIUM 4.6 MMOL/L (3.5-5.1)
[2024-10-07 06:11] LABS: BASOPHILS % (AUTO) 0.6 % (0-1); EOSINOPHILS # (AUTO) 0.2 X10'3 (0-0.9); EOSINOPHILS % (AUTO) 2.9 % (0-6); HEMATOCRIT 47.8 % (35.0-45.0); HEMOGLOBIN 15.4 g/dl (12.0-16.0); LYMPHOCYTES # (AUTO) 1.4 X10'3 (1.1-4.8); LYMPHOCYTES % (AUTO) 21.5 % (21-51); MEAN CORPUSCULAR HEMOGLOBIN 29.8 PG (27.0-31.0); MEAN CORPUSCULAR HGB CONC 32.2 g/dL (33.0-36.5); MEAN CORPUSCULAR VOLUME 92.6 FL (78-98); MEAN PLATELET VOLUME 7.3 FL (7.4-10.4); MONOCYTES # (AUTO) 0.4 X10'3 (0-0.9); MONOCYTES % (AUTO) 6.1 % (2-12); NEUTROPHILS # (AUTO) 4.5 X10'3 (1.8-7.7); NEUTROPHILS % (AUTO) 68.9 % (42-75); PLATELET COUNT 357 X10'3 (140-440); RED BLOOD COUNT 5.16 X10'6 (4.20-5.60); RED CELL DISTRIBUTION WIDTH 16.1 % (11.5-14.5); WHITE BLOOD COUNT 6.5 X10'3 (4.5-11.0)
[2024-10-07 07:23] VITALS: BP 146/61; PULSE 54; RESP 14; TEMP 97.6; O2SAT 98
[2024-10-07] MEDS ORDERED: AMI200T PO (07:52)
[2024-10-07] MEDS ORDERED: CARCD120C PO (07:52)
[2024-10-07 08:00] VITALS: RESP 18; O2SAT 98
[2024-10-07] MEDS: diltiazem CD 120mg capsule (once-daily) PO SCH (08:00)
[2024-10-07 10:13] LABS: CHOL/HDL RATIO 4.3 (0.00-4.99); CHOLESTEROL 162 MG/DL (0-200); HDL CHOLESTEROL 38 MG/DL (35-60); LDL CHOLESTEROL 111 MG/DL (50-100); MAGNESIUM 2.1 MG/DL (1.5-2.4); TRIGLYCERIDES 115 MG/DL (20-135)
[2024-10-07 11:12] VITALS: BP 136/58; PULSE 53; RESP 18; TEMP 97.8; O2SAT 96
[2024-10-07] MEDS ORDERED: AMOX-419 PO (19:23)
[2024-10-07] MEDS ORDERED: AZIT250T2 PO (19:23)
[2024-10-07] MEDS ORDERED: Melatonin 3mg tablet PO SCH (21:00)
[2024-10-08] MEDS ORDERED: azithromycin 250mg tablet PO SCH (08:00)
[2024-10-08] MEDS ORDERED: amox tr/potassium clavulanate 875/125mg TAB PO SCH (08:30)
== END 2024-10-07 13:01 | disposition home or self-care (01) | DRG 282 ==
LOC: ER 06:25 → ED HOLD 07:47 → PCU 3S 19:10
PROVIDERS: ADMIT Nurse Practitioner Family; ATTEND Nurse Practitioner Family
DX: I48.0 Paroxysmal atrial fibrillation (principal); I21.A1 Myocardial infarction type 2; I10 Essential (primary) hypertension; K21.9 Gastro-esophageal reflux disease without esophagitis; E03.9 Hypothyroidism, unspecified; Z87.891 Personal history of nicotine dependence; Z79.899 Other long term (current) drug therapy; Z79.01 Long term (current) use of anticoagulants
CPT/HCPCS: 36415; 71045; 80053; 80061; 80076; 81003; 83735; 83880; 84132; 84443; 84484; 85025; 85610; 85730; 87081; 93005; 93306; 96365; 96367; 96376; 97116; 97161; 97530; 99291; G0378; J1644; J3490; J7030